=== PATIENT | male | born 1965 ===

== ENCOUNTER 2017-10-16 11:14 | Emergency (ER) | payer BC ==
[2017-10-16 11:39] VITALS: BP 145/83
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
== END 2017-10-16 11:56 | disposition home or self-care (01) ==
LOC: UCCORT 11:14
DX: R20.0 Anesthesia of skin (principal); I10 Essential (primary) hypertension; E78.00 Pure hypercholesterolemia, unspecified; Z98.84 Bariatric surgery status; Z91.040 Latex allergy status; Z87.891 Personal history of nicotine dependence
CPT/HCPCS: 99202; G0463